=== PATIENT | female | born 1990 | race Two or more races ===

== ENCOUNTER 2025-02-04 00:34 | Emergency (ER) | payer OTHER ==
[~2025-02-04] VITALS: Ht 165.1 cm; Wt 56.7 kg
[2025-02-04] MEDS ORDERED: ONDANSETRON HCL/PF 4 MG/2 ML VIAL ONE (01:11)
[2025-02-04] MEDS ORDERED: PANTOPRAZOLE 40 MG VIAL ONE (01:11)
[2025-02-04] MEDS ORDERED: DICYCLOMINE HCL 10 MG CAPSULE PO ONE (01:12)
[2025-02-04 01:23] LABS: PLATELET COUNT (AUTO) 214 K/uL (150-450); RED BLOOD CELL COUNT(AUTO) 3.59 MIL/uL (4.0-5.2); RED CELL DISTRIBUTION WIDTH 12.7 % (11.5-15.0); WHITE BLOOD COUNT (AUTO) 5.0 K/uL (4.3-11.0)
[2025-02-04 01:26] LABS: APPEARANCE,URINE CLOUDY (CLEAR); BLOOD, URINE 3+ Ery/uL (NEGATIVE); LEUKOCYTE ESTERASE ,URINE NEGATIVE (NEGATIVE); NITRITE, URINE NEGATIVE (NEGATIVE); UGLUCOSE NEGATIVE (NEGATIVE)
[2025-02-04] MEDS: IV NS 0.9% 1,000 ML BAG IV ONE (01:28)
[2025-02-04 01:29] LABS: CALCIUM, SERUM 9.0 mg/dL (8.5-10.1); CREATININE 0.6 mg/dL (0.6-1.3); SODIUM SERUM 139 mmol/L (136-145); UREA NITROGEN, BLOOD 16 mg/dL (7-18)
[2025-02-04] MEDS: DICYCLOMINE HCL 10 MG CAPSULE PO ONE (01:29)
[2025-02-04] MEDS: PANTOPRAZOLE 40 MG VIAL IV ONE (01:29)
[2025-02-04] MEDS: ONDANSETRON HCL/PF 4 MG/2 ML VIAL IV ONE (01:29)
[2025-02-04 01:31] LABS: ADD URINE CULTURE NO; PREGNANCY TEST URINE QUAL NEGATIVE (NEGATIVE); SQUAMOUS EPITHELIAL CELL,UR Rare /HPF (None Seen)
[2025-02-04 01:34] LABS: ASPARTATE AMINOTRANSFERASE 9 U/L (15-37); TOTAL PROTEIN, SERUM 6.9 g/dL (6.4-8.2)
[2025-02-04 01:37] LABS: LACTIC ACID 1.5 mmol/L (0.4-2.0)
[2025-02-04] MEDS ORDERED: ONDA4TAB5 PO (02:30)
[2025-02-04] MEDS ORDERED: PANT40TA2 PO (02:30)
[2025-02-04] MEDS ORDERED: DICY10CA37 PO (02:30)
[2025-02-04 02:56] VITALS: BP 116/71; TEMP 98.1; O2SAT 99
== END 2025-02-04 02:57 | disposition home or self-care (01) ==
LOC: ER 00:36
DX: R11.2 Nausea with vomiting, unspecified (principal); R10.9 Unspecified abdominal pain
CPT/HCPCS: 99284; 96374; 71045; 96361; 96375; 85025; 83605; 83690; 83735; 84703; 81001; 36415; 80053; 86140; J2405; J7030; J2470